=== PATIENT | male | born 1960 | race Two or more races ===

== ENCOUNTER 2023-08-19 10:32 | Emergency (ER) | payer OTHER ==
[~2023-08-19] VITALS: Ht 180.3 cm; Wt 89.8 kg
[2023-08-19] MEDS ORDERED: COZAAR100 MG (11:03)
[2023-08-19 12:28] LABS: HEMATOCRIT 37.9 % (39.0-48.0); HEMOGLOBIN 12.9 g/dL (13-16.00); MEAN CELL VOLUME 86.3 fL (80.0-100.00); MEAN CORPUSCULAR HEMOGLOBIN 29.2 pg (27.00-32.0); MEAN CORPUSCULAR HGB CONC 33.9 g/dl (32.0-36.0); PLATELET COUNT 187 K/uL (150-450); RED CELL DISTRIBUTION WIDTH 12.7 % (11.5-14.5)
[2023-08-19] MEDS ORDERED: DICLOFENAC SODI75 MG PO (13:19)
== END 2023-08-19 13:27 | disposition home or self-care (01) ==
LOC: ER 10:33
PROVIDERS: General Practice
DX: S61.422A Laceration with foreign body of left hand, initial encounter (principal); X99.8XXA Assault by other sharp object, initial encounter; Y93.89 Activity, other specified; Y92.89 Other specified places as the place of occurrence of the external cause; I10 Essential (primary) hypertension
CPT/HCPCS: 36415; 73130; 96372; 99284; J0696; J1885